=== PATIENT | male | born 1955 | race Caucasian/White ===

== ENCOUNTER 2017-02-26 07:29 | Observation (INO) | payer MEDICARE, OTHER ==
[~2017-02-26] VITALS: Ht 167.6 cm; Wt 92.0 kg
[~2017-02-26 07:29] MED LIST: ALPR0.5T PO; ASPI-727 PO; ATOR40TA21 PO; BEN50 PO; ZOLP10TA PO
[2017-02-26] MEDS ORDERED: ASPIRIN 325 MG TAB PO STA (07:43)
[2017-02-26] MEDS: NITROGLYCERIN (SL) 0.4 MG TAB SL PRN ×2 (07:55→08:24)
--- NOTE | 2017-02-26 08:06 | RADRPT ---
PROCEDURE: XR Chest. CLINICAL INDICATION: chest pain TECHNIQUE: Single frontal view of the chest was obtained COMPARISON: 01/19/2013 FINDINGS: The heart and mediastinum are within normal limits. The lungs are clear. There is no pleural effusion or pneumothorax. RPTAT: AA IMPRESSION: No acute disease. .Nils Bruno MD, MD Date Time Electronically viewed and signed by .Nils Bruno MD, on 02/26/2017 08:06 .S/
[2017-02-26 08:08] LABS: ADD SCAN DIFF NO
[2017-02-26 08:16] LABS: BASOPHILS % 0.7 % (0.0-2.0); EOSINOPHILS # 0.1 10^3/ul (0.0-0.5); EOSINOPHILS % 1.6 % (0.0-7.0); HEMATOCRIT 43.5 % (42.0-52.0); HEMOGLOBIN 14.4 g/dl (14.0-18.0); LYMPHOCYTES # 2.7 10^3/ul (0.8-2.9); LYMPHOCYTES % 44.5 % (15.0-51.0); MEAN CORPUSCULAR HEMOGLOBIN 31.2 pg (29.0-33.0); MEAN CORPUSCULAR HGB CONC 33.1 g/dl (32.0-37.0); MEAN CORPUSCULAR VOLUME 94.4 fl (82.0-101.0); MEAN PLATELET VOLUME 9.9 fl (7.4-10.4); MONOCYTE # 0.5 10^3/ul (0.3-0.9); MONOCYTES % 8.8 % (0.0-11.0); NEUTROPHIL # 2.7 10^3/ul (1.6-7.5); NEUTROPHILS % 43.4 % (39.0-77.0); PLATELET COUNT 161 10^3/UL (140-415); RED BLOOD COUNT 4.61 10^6/ul (4.70-6.10); WHITE BLOOD COUNT 6.1 10^3/ul (4.8-10.8)
[2017-02-26 08:19] LABS: INR 0.9; PARTIAL THROMBOPLASTIN TIME 24.4 Sec (25.0-35.0); PROTIME 12.1 Sec (12.2-14.2); PT RATIO 0.9
[2017-02-26 08:20] LABS: CHLORIDE 104 mmol/L (97-110); SODIUM 141 mmol/L (135-144)
[2017-02-26 08:21] LABS: POTASSIUM 4.1 mmol/L (3.5-5.1)
[2017-02-26 08:23] LABS: CREATININE 0.82 mg/dl (0.61-1.24)
[2017-02-26 08:24] LABS: ANION GAP 15 (8-16); BLOOD UREA NITROGEN 22 mg/dl (7-20); CARBON DIOXIDE 26 mmol/L (21-31); GLUCOSE 96 mg/dl (70-220)
[2017-02-26 08:45] LABS: TROPONIN-I < 0.012 ng/ml (0.00-0.12)
[2017-02-26] MEDS ORDERED: ACETAMINOPHEN 325 MG TAB PO PRN ×2 (09:30→10:30)
[2017-02-26] MEDS ORDERED: ONDANSETRON 4 MG INJ IV PRN (09:30)
--- NOTE | 2017-02-26 09:40 | ERA ---
ER Documentation Chief Complaint Date/Time DATE: 02/26/17 TIME: 09:38 Chief Complaint CAME IN VIA INTAKE DUE TO CHEST PAIN HPI This is a 61-year-old male presents to the emergency room for evaluation of chest pain. The patient states that he had chest pain on and off for the past 48 hours. He describes his chest pain as a pressure-like sensation in the center of the chest with no radiation. He denies any aggravating or relieving factors for his pain. He does state that he has had a previous heart attack, and subsequent stent placed. He denies any palpitations or shortness of breath at this time ROS All systems reviewed and are negative except as per history of present illness. Medications Home Meds Reported Medications Alprazolam* (Xanax*) 0.5 Mg Tab, 0.5 MG PO QBEDTIME 01/19/13 Diphenhydramine Hcl* (Benadryl*) 50 Mg Cap, 50 MG PO QBEDTIME 01/19/13 Zolpidem Tartrate* (Ambien*) 10 Mg Tablet, 10 MG PO QBEDTIME 01/19/13 Aspirin (Adult Aspirin) 81 Mg Tab.chew, 81 MG PO DAILY 01/19/13 Atorvastatin (Lipitor) 40 Mg Tablet, 40 MG PO DAILY 01/19/13 Allergies Allergies: Coded Allergies: No Known Allergy (Verified , 04/26/09) PMhx/Soc History of Surgery: Yes (ONE STENT PLACEMENT, ANGIOGRAM X2) Anesthesia Reaction: No Hx Neurological Disorder: No Hx Respiratory Disorders: No Hx Cardiac Disorders: Yes (arterial occlusion corrected by stent) Hx Psychiatric Problems: No Hx Miscellaneous Medical Probl: Yes (INSOMNIA ) Hx Alcohol Use: No Hx Substance Use: No Hx Tobacco Use: No Smoking Status: Never smoker Physical Exam Vitals Vital Signs Date Time Temp Pulse Resp B/P Pulse Ox O2 Delivery O2 Flow Rate FiO2 02/26/17 08:26 64 18 153/94 98 02/26/17 07:33 98.1 71 18 136/82 98 Physical Exam INITIAL VITAL SIGNS: Reviewed by me GENERAL: The patient is well developed and appropriate for usual state of health in no apparent distress HEENT: Pupils equal, round, and reactive to light. EOMI. There is no scleral icterus. NECK: C-spine is soft and supple, there is no meningismus. There is no cervical lymphadenopathy. LUNGS: Clear to auscultation bilaterally. There are no rales, wheezes or rhonchi. HEART: Regular rate and rhythm, no murmurs, clicks, rubs or gallops. ABDOMEN: Soft, non-tender, non-distended. There are bowel sounds in all four quadrants. No rebound or guarding. EXTREMITIES: There is no peripheral cyanosis or edema. No focal swelling or erythema. NEUROLOGICAL: The patient moves all four extremities with 5/5 strength. Cranial nerves II - XII are intact. Normal gait. Alert and oriented SKIN: There is no apparent rash or petechiae. HEME/LYMPHATIC: There is no evidence of excessive bruising or lymphedema. PSYCHIATRIC: The patient does not appear anxious or depressed. Result Diagram: 02/26/17 0750 02/26/17 0750 Results 24 hrs Laboratory Tests Test 02/26/17 07:50 White Blood Count 6.110^3/ul Red Blood Count 4.6110^6/ul Hemoglobin 14.4g/dl Hematocrit 43.5% Mean Corpuscular Volume 94.4fl Mean Corpuscular Hemoglobin 31.2pg Mean Corpuscular Hemoglobin Concent 33.1g/dl Red Cell Distribution Width 13.0% Platelet Count 00805^3/UL Mean Platelet Volume 9.9fl Neutrophils % 43.4% Lymphocytes % 44.5% Monocytes % 8.8% Eosinophils % 1.6% Basophils % 0.7% Nucleated Red Blood Cells % 0.0/100WBC Neutrophils # 2.710^3/ul Lymphocytes # 2.710^3/ul Monocytes # 0.510^3/ul Eosinophils # 0.110^3/ul Basophils # 0.010^3/ul Nucleated Red Blood Cells # 0.010^3/ul Prothrombin Time 12.1Sec Prothrombin Time Ratio 0.9 INR International Normalized Ratio 0.90 Activated Partial Thromboplast Time 24.4Sec Sodium Level 141mmol/L Potassium Level 4.1mmol/L Chloride Level 104mmol/L Carbon Dioxide Level 26mmol/L Anion Gap 15 Blood Urea Nitrogen 22mg/dl Creatinine 0.82mg/dl Glucose Level 96mg/dl Calcium Level 9.0mg/dl Troponin I < 0.012ng/ml Current Medications Medications (Trade) Dose Ordered Sig/W[place]ley Route PRN Reason Start Time Stop Time Status Last Admin Dose Admin Aspirin (Aspirin) 325 mg ONCE STAT PO 02/26/17 07:43 02/26/17 07:44 DC 02/26/17 07:55 Nitroglycerin (Nitroglycerin (Sl Tab) 0.4 Mg) 1 tab Q5M UP TO 3 DOSES PRN SL CHEST PAIN 02/26/17 08:00 02/26/17 08:24 Ondansetron HCl (Zofran Inj) 4 mg ER BRIDGE PRN IV NAUSEA AND/OR VOMITING 02/26/17 09:30 02/27/17 09:29 Acetaminophen (Tylenol Tab) 650 mg ER BRIDGE PRN PO MILD PAIN/FEVER 02/26/17 09:30 02/27/17 09:29 Procedures/MDM EKG: #1 Rate/Rhythm: [Normal Sinus Rhythm] QRS, ST, T-waves: [No changes consistent w/ acute ischemia] Impression: [No evidence of ischemia or arrhythmia] EKG: #2 Rate/Rhythm: [Normal Sinus Rhythm] QRS, ST, T-waves: [No changes consistent w/ acute ischemia] Impression: [No evidence of ischemia or arrhythmia] Chest X-ray 1V Interpreted by me: Soft Tissue: No acute abnormalities Bones: No acute abnormalities Mediastinum/Cardiac Silhouette/Lungs: [No acute abnormalities] This 61-year-old male presents to the ER for evaluation of chest pain. When I evaluated this patient he did not appear to be in any distress. He does state that his chest pain is intermittent and substernal, pressure-like in nature. Patient had 2 EKGs are nonischemic. First troponin which was negative, and chest x-ray which is clear. However given this patient's age, and the psychosis patient will be placed in for admission at this time as it is not had a stress test in over 4 years. The patient is hemodynamically stable at this time, no signs of hypoxia. And will be admitted under the care of her panel physician, Dr. Jolly Departure Diagnosis: Primary Impression: Chest pain Condition: Stable JUNIORKAYYanetGEOVANNARODO JAIMES Feb 26, 2017 09:40
[2017-02-26] MEDS ORDERED: OMEP40CA6 PO (09:48)
[2017-02-26] MEDS ORDERED: ALPR0.5T6 PO (09:49)
[2017-02-26] MEDS ORDERED: CHOL100062 PO (09:50)
[2017-02-26] MEDS ORDERED: ZOLP5TAB7 PO (09:50)
[2017-02-26] MEDS ORDERED: AMLO5TAB4 PO (09:50)
[2017-02-26] MEDS ORDERED: DULO60CA6 PO (09:51)
[2017-02-26] MEDS ORDERED: ZOLPIDEM 5 MG TAB PO PRN (10:30)
[2017-02-26] MEDS ORDERED: NITROGLYCERIN (SL) 0.4 MG TAB SL PRN (10:30)
[2017-02-26] MEDS ORDERED: NACL 0.9% 3 ML SYG IV SCH (10:30)
[2017-02-26] MEDS ORDERED: ALPRAZOLAM 0.5 MG TAB PO PRN (10:30)
[2017-02-26] MEDS ORDERED: DOCUSATE SODIUM 100 MG CAP PO PRN (10:30)
[2017-02-26] MEDS ORDERED: ONDANSETRON 4 MG TAB PO PRN (10:30)
[2017-02-26 14:53] LABS: CREATINE KINASE 52 IU/L (23-200)
[2017-02-26 15:07] LABS: CK-MB 0.89 ng/ml (0.0-2.4); TROPONIN-I < 0.012 ng/ml (0.00-0.12)
[2017-02-26] MEDS: DEXTROSE 5%-0.45% NACL 1,000 ML IV SCH (17:34)
--- NOTE | 2017-02-26 17:43 | HP ---
DATE OF ADMISSION: 02/26/2017 FLIGHT ENGINEER: Dr. Mckeon, Cardiology. CHIEF COMPLAINT: Shortness of breath and chest discomfort. HISTORY OF PRESENT ILLNESS: This is a 61-year-old gentleman with past medical history of coronary a rtery disease status post PCI right coronary artery in 2008 and had repeat cardiac catheterization o n 01/21/2013 with finding of widely patent right coronary stent with minimal coronary artery disease with noncardiac chest pain finding and has been followed by Dr. 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 ____does not practice and has retired. Patient presents to [facility] emergency room secondary to having 3 days of shortness of breath with chest dis comfort. Chest discomfort is described as chest pressure and left shoulder discomfort. There is no evidence of diaphoresis, no change of the symptoms with activity. There is no worsening of the odilon st pain exacerbated with ambulation. Patient stated that he has been compliant with his medications and upon arrival to the ER, an EKG was obtained which demonstrated normal sinus rhythm, no changes consistent with acute ischemia, no evidence of ischemia or arrhythmia. He was treated with aspirin, nitroglycerin and Tylenol in the course of emergency room. Cardiology was consulted. At this time , patient is lying in bed comfortably without any distress. He is awake, alert, and oriented. PAST MEDICAL AND SURGICAL HISTORY: 1. Anxiety. 2. Hypertension. 3. Dyslipidemia. 4. Coronary artery disease status post PCI. 5. Major depression. 6. GERD. 7. Insomnia. ALLERGIES: NO KNOWN DRUG ALLERGIES. FAMILY HISTORY: Positive for coronary artery disease, hypertension. SOCIAL HISTORY: He used to smoke, although he quit about 15 years ago. Occasional alcohol use, no illicit drugs. REVIEW OF SYSTEMS: As above per HPI, otherwise 12 review of systems was found to be negative. PHYSICAL EXAMINATION: VITAL SIGNS: Temperature 98.0, pulse 58, respiration 18, blood pressure 140/95, oxygen 97% in room air. GENERAL APPEARANCE: The patient is lying in bed comfortably without distress. He is awake, alert, oriented. He is able to answer my questions properly. EYES AND ENT: Conjunctivae and lids are normal. Pupils are normal. Extraocular normal. Hearing g rossly normal. Lips are normal. Oral mucosa is moist. NECK: Supple. Trachea is midline. No lymphadenopathy. RESPIRATORY: Effort is normal. Clear to auscultate bilaterally. CARDIOVASCULAR: Normal S1, S2. Regular rhythm and rate. No murmur, no bruits, no edema. Peripher al pulses, radial pulses palpable. Cap refill is normal. CHEST: Normal expansion of thorax during inspiration. GASTROINTESTINAL: Abdomen is soft, nontender, not distended. Bowel sounds present. No guarding, n o rebound. GENITOURINARY: Deferred. MUSCULOSKELETAL: Upper and lower extremities within normal limits. Full range of motion, strength 5/5 in both upper and lower extremities. NEUROLOGIC: Cranial nerves II through XII are grossly intact. PSYCHIATRIC: Normal judgment and insight. Alert and oriented x3. Mood and affect is normal. LABORATORY WORK AND IMAGING: WBC ____, hemoglobin ____, hematocrit 43.5, platelets 161. Sodium 141 , potassium 4.1, chloride 104, bicarbonate 26, BUN 22, creatinine 0.82, glucose 96, calcium 9.0, tro ponin negative x2. EKG as above per HPI. No evidence of ischemia. ASSESSMENT AND PLAN: 1. Angina with history of percutaneous coronary intervention and coronary artery disease. The shantelel ent has been started on aspirin. Continue statin. Continue blood pressure medication. Follow up l ipid panel, a 2D echocardiogram. Cardiology has been consulted. We will follow up their recommenda tion. 2. History of dyslipidemia. Continue statin. Follow lipid panel in a.m. 3. Essential hypertension, mildly controlled. Continue home medication. Continue to monitor. 4. Major depression. Continue Cymbalta. 5. Gastroesophageal reflux disease. Continue proton pump inhibitor. 6. Insomnia. Continue Ambien p.r.n. 7. Deep venous thrombosis prophylaxis, on Lovenox. 8. We will continue to monitor patient closely. Further recommendations, management and treatment as per clinical course. Dictated By: JAVIER SAMPSON MD PN/NTS Conf#: [id number] DID#: [id number] CC: TRACY MCKEON MD;*EndCC*
[2017-02-26 19:36] LABS: CREATINE KINASE 68 IU/L (23-200)
[2017-02-26 19:51] LABS: CK-MB 1.18 ng/ml (0.0-2.4); TROPONIN-I < 0.012 ng/ml (0.00-0.12)
[2017-02-26] MEDS: LORAZEPAM 0.5 MG TAB PO PRN (20:18)
[2017-02-26 21:07] VITALS: TEMP 97.7
[2017-02-26 21:26] VITALS: PULSE 63
--- NOTE | 2017-02-26 23:45 | RADRPT ---
Echocardiogram Report Patient Name: ANNETTE GARCÍA Gender: Male Date: 1955 Study Date: 26-Feb-2017 Operator Bearer Systems: LEAH AYON Location: [facility] Ref. Physician: JAVIER SAMPSON Quality: Adequate Procedures: Transthoracic echocardiogram with complete 2D, M-Mode, and doppler examination. Indications: Chest Pain. 2D/M Mode Doppler Measurement Value Normal Ranges Measurement Value Normal Ranges LVIDd 2D 4.4 3.5 - 5.6 cm CARROLL Vmax 2.9 cm2 LVIDs 2D 2.9 2.1 - 4.1 cm AV Peak Mason 1.0 m/sec FS 2D 34.2 % AV Peak PG 4.0 mmHg LVPWd 2D 1.0 0.6 - 1.1 cm LVOT Peak Mason 0.8 m/sec IVSd 2D 1.0 0.6 - 1.1 cm LVOT Peak PG 3.0 mmHg IVS/LVPW 2D 1.0 MV E Peak Mason 0.7 m/sec AoR Diam 2D 2.7 2.0 - 3.7 cm MV A Peak Mason 0.6 m/sec LA/Ao 2D 1 0 - 1 MV E/A 1.1 EDV 2D 84.0 cm3 MV Decel Time 187 msec ESV 2D 23.9 cm3 MV E/A 1.1 LA Dimen 2D 3.3 2.3 - 4.0 cm TR Peak Mason 2.5 m/sec LVOT Diam 2.2 cm TR Peak PG 24.0 mmHg LVOT Area 3.8 cm2 RVSP 27.0 mmHg Findings Left Ventricle: Lower limits of normal systolic function. Normal left ventricular wall thickness. Ejection fraction is visually estimated at 5055 %. Tissue Doppler/Mitral Doppler indices are consistent with impaired relaxation (Stage I diastolic dysfunction). Right Ventricle: Normal right ventricular size. Normal right ventricular systolic function. Left Atrium: The left atrium is normal in size. Right Atrium: The right atrium is normal in size. Mitral Valve: Normal appearance of the mitral valve. Normal appearance and function of the mitral valve with trace physiologic regurgitation. Aortic Valve: Normal appearance of the aortic valve. No significant aortic stenosis or insufficiency. Tricuspid Valve: Normal appearance and function of the tricuspid valve with trace physiologic regurgitation. Normal right ventricular systolic pressure. Estimated peak PA systolic pressure 27 mmHg. Pulmonic Valve: Pulmonic valve not well visualized. There is trace to mild pulmonic regurgitation. Pericardium: Normal pericardium with no significant pericardial effusion. Aorta: Normal aortic root. IVC: Normal size and normal respiratory collapse consistent with normal right atrial pressure. Conclusions 1.Lower limits of normal systolic function. Normal left ventricular wall thickness. Ejection fraction is visually estimated at 50-55 %. Tissue Doppler/Mitral Doppler indices are consistent with impaired relaxation (Stage I diastolic dysfunction). 2.Normal appearance of the mitral valve. Normal appearance and function of the mitral valve with trace physiologic regurgitation. 3.Normal appearance and function of the tricuspid valve with trace physiologic regurgitation. Normal right ventricular systolic pressure. Estimated peak PA systolic pressure 27 mmHg. 4.Pulmonic valve not well visualized. There is trace to mild pulmonic regurgitation. Electronically Signed By: Nickolas Larkin 26-Feb-2017 23:45:01 -0700 Patient Name: ANNETTE GARCÍA Study Date: 26-Feb-2017 [id number]
[2017-02-27] VITALS (23 sets, daily range): BP systolic 104–140; BP diastolic 61–90; PULSE 52–72; RESP 16–20; Ht 167.6 cm; Wt 92.0 kg
[2017-02-27] MEDS: LORAZEPAM 0.5 MG TAB PO PRN (01:15)
[2017-02-27] MEDS: morphine 2 MG INJ IV PRN ×2 (06:12→06:19)
[2017-02-27] MEDS: PANTOPRAZOLE (EC) 40 MG TAB PO SCH (06:19)
[2017-02-27] MEDS: DEXTROSE 5%-0.45% NACL 1,000 ML IV SCH (06:26)
[2017-02-27 07:55] LABS: ADD SCAN DIFF NO
[2017-02-27 07:59] LABS: BASOPHILS % 0.4 % (0.0-2.0); EOSINOPHILS # 0.1 10^3/ul (0.0-0.5); EOSINOPHILS % 2.1 % (0.0-7.0); HEMATOCRIT 39.8 % (42.0-52.0); HEMOGLOBIN 13.4 g/dl (14.0-18.0); LYMPHOCYTES % 40.7 % (15.0-51.0); MEAN CORPUSCULAR HEMOGLOBIN 32.1 pg (29.0-33.0); MEAN CORPUSCULAR HGB CONC 33.7 g/dl (32.0-37.0); MEAN CORPUSCULAR VOLUME 95.2 fl (82.0-101.0); MEAN PLATELET VOLUME 9.7 fl (7.4-10.4); MONOCYTE # 0.4 10^3/ul (0.3-0.9); MONOCYTES % 8.8 % (0.0-11.0); NEUTROPHIL # 2.3 10^3/ul (1.6-7.5); NEUTROPHILS % 47.4 % (39.0-77.0); PLATELET COUNT 147 10^3/UL (140-415); RED BLOOD COUNT 4.18 10^6/ul (4.70-6.10); RED CELL DISTRIBUTION WIDTH 12.7 % (11.5-14.5); WHITE BLOOD COUNT 4.9 10^3/ul (4.8-10.8)
[2017-02-27 08:29] LABS: CREATINE KINASE 35 IU/L (23-200)
[2017-02-27 08:46] LABS: CK-MB 0.59 ng/ml (0.0-2.4); TROPONIN-I < 0.012 ng/ml (0.00-0.12)
[2017-02-27] MEDS: ASPIRIN 81 MG TAB PO SCH (08:56)
--- NOTE | 2017-02-27 08:56 | CONS ---
Date/Time of Note Date/Time of Note DATE: 02/27/17 TIME: 08:46 Assessment/Plan Assessment/Plan Chief Complaint/Hosp Course Impression: Chest pain- symptoms c/w unstable angina, has recent stress within 6 mo which was negative, but sub maximal. has r/o for acs with no trop/ekg changes. no wma on echo. however given recurrent symptoms and PCI hx would recommend further evaluation with C given high risk status Hypertension - controlled Dyspnea- could be angina related, LVEF normal no e/o of other chf on exam. cxr clear. Recommendations: - cont asa, statin - cont bp control - off bb given denise 50s - prn sln/pain medication for recurrent pain - plan for LHC w possible PCI this afternoon around 330 pm. keep npo and hold heparin products. pt aware of risks/benefits of procedure, agrees to proceed Problems: Consultation Date/Type/Reason Admit Date/Time Feb 26, 2017 at 09:24 Date of Consultation: Feb 27, 2017 Type of Consultation: Cardiology Reason for Consultation Chest Pain Referring Provider: JAVIER SAMPSON MD Hx of Present Illness 61 y.o. with h/o of HTN, leukemia, and CAD s/p PCI of the right coronary artery in 2008. Pt presented to [facility] with progressive sob/chest pain. Pt states chronic sob with exertion, has previous stress 08/[address] Patel with no ischemia, but submaximal stress. Pt states over the last few days has progressive dyspnea even walking a few feet, requires him to rest. also with intermittent daily chest pain L sided to L shoulder with diaphoresis, dizziness no n/v/sob. Pain is severe, requires him to rest, pressure/tightness type pain. occurs at rest and resolved by itself or with pain medication after 10 mins. No positional component. pt states this pain is similar to previous pain prior to pci. Did have recurrent pain this AM denies any recent illness fevers, chills, cough. takes medications, bp controlled. EKG shows no serial changes, NSR, poor r wave progression Echo shows normal LVEF 55% without rwma Serial trop neg x 3, Constitutional: no complaints Eyes: no complaints ENT: no complaints Respiratory: shortness of breath, No cough, No pleuritic pain, No wheezing Cardiovascular: chest pain Gastrointestinal: no complaints Genitourinary: no complaints Musculoskeletal: no complaints Skin: no complaints Neurologic: no complaints Psychological: nl mood/affect, no complaints Immunologic: no complaints Past Medical History CAD (coronary artery disease), [place] coronary artery (414.01) (I25.10) PCI to RCA with JONO 2008 with angio 2012 without lesions Essential hypertension (401.9) (I10) 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 Past Surgical History PCI as above Family History Significant Family History: hypertension Social History Alcohol Use: none Smoking Status: Former smoker Drug Use: none Exam/Review of Systems Vital Signs Vitals Vital Signs Date Time Temp Pulse Resp B/P Pulse Ox O2 Delivery O2 Flow Rate FiO2 02/27/17 08:25 56 02/27/17 07:52 98.0 19 104/65 98 02/27/17 00:00 Room Air Intake and Output 02/26/17 02/26/17 02/27/17 15:00 23:00 07:00 Intake Total 525 ml Output Total 540 ml Balance -15 ml Exam Constitutional: alert, oriented, other (overweight) Psych: nl mood/affect, no complaints Head: atraumatic, normocephalic ENMT: mucosa pink and moist, nl external ears & nose, nl lips & teeth Neck: non-tender, supple, No jvd Respiratory: clear to auscultation, normal air movement Cardiovascular: nl pulses, regular rate and rhythm, No S3, No S4, No edema, No irregular rhythm, No jugular venous distention ( JVD), No systolic murmur Gastrointestinal: non-tender, soft Musculoskeletal: nl extremities to inspection Extremities: normal pulses, other (2+ radial, feomral) Neurological: [employer] RECRUITER II-XII intact, nl mental status, nl speech, nl strength Results Result Diagram: 02/27/17 0719 02/26/17 0750 Results 24 hrs Laboratory Tests Test 02/26/17 14:20 02/26/17 19:10 02/27/17 07:19 Creatine Kinase 52 68 35 Creatine Kinase Index 1.7 1.7 Pending Creatinine Kinase MB (Mass) 0.89 1.18 Pending Troponin I < 0.012 < 0.012 Pending White Blood Count 4.9 Red Blood Count 4.18 L Hemoglobin 13.4 L Hematocrit 39.8 L Mean Corpuscular Volume 95.2 Mean Corpuscular Hemoglobin 32.1 Mean Corpuscular Hemoglobin Concent 33.7 Red Cell Distribution Width 12.7 Platelet Count 147 Mean Platelet Volume 9.7 Neutrophils % 47.4 Lymphocytes % 40.7 Monocytes % 8.8 Eosinophils % 2.1 Basophils % 0.4 Nucleated Red Blood Cells % 0.0 Neutrophils # 2.3 Lymphocytes # 2.0 Monocytes # 0.4 Eosinophils # 0.1 Basophils # 0.0 Nucleated Red Blood Cells # 0.0 Medications Medications Current Medications Alprazolam (Xanax) 0.5 mg QHS PRN PO ANXIETY; Start 02/26/17 at 10:30 Amlodipine Besylate (Norvasc) 5 mg DAILY PO ; Start 02/27/17 at 09:00 Atorvastatin Calcium (Lipitor) 40 mg DAILY PO ; Start 02/27/17 at 09:00 Cholecalciferol (Vitamin D) 1,000 unit DAILY PO ; Start 02/27/17 at 09:00 Duloxetine HCl (Cymbalta) 60 mg DAILY PO ; Start 02/27/17 at 09:00 Zolpidem Tartrate (Ambien) 5 mg QHS PRN PO INSOMNIA Last administered on 22:26; Admin Dose 5 MG; Start 02/26/17 at 10:30 Lorazepam (Ativan) 0.5 mg Q8H PRN PO ANXIETY Last administered on 02/27/17 01: 15; Admin Dose 0.5 MG; Start 02/26/17 at 10:30 Ondansetron HCl (Zofran Tab) 4 mg Q6H PRN PO NAUSEA AND/OR VOMITING; Start at 10:30 Nitroglycerin (Nitroglycerin (Sl Tab) 0.4 Mg) 1 tab Q5M PRN SL CHEST PAIN Last administered on 02/27/17 06:24; Admin Dose 1 TAB; Start 02/26/17 at 10:30 Acetaminophen (Tylenol Tab) 650 mg Q6H PRN PO PAIN LEVEL 1-3 OR FEVER Last administered on 02/26/17 15:33; Admin Dose 650 MG; Start 02/26/17 at 10:30 Morphine Sulfate (morphine) 1 mg Q4H PRN IV PAIN LEVEL 7-10 Last administered on 02/27/17 06:19; Admin Dose 1 MG; Start 02/26/17 at 10:30 Docusate Sodium (Colace) 100 mg Q12H PRN PO CONSTIPATION; Start 02/26/17 at 10: 30 Enoxaparin Sodium (Lovenox) 40 mg DAILY SC ; Start 02/27/17 at 09:00 Aspirin 81 mg 81 mg DAILY PO ; Start 02/27/17 at 09:00 Dextrose/Sodium Chloride (D5-1/2ns) 1,000 ml @ 75 mls/hr [id number] IV Last administered on 02/27/17t 06:26; Admin Dose 75 MLS/HR; Start 02/26/17 at 17:30 Procedures Procedures cxr images reviewed- no acute abnl TRACY MCKEON Feb 27, 2017 08:56
[2017-02-27] MEDS: ATORVASTATIN 40 MG TAB PO SCH (08:57)
[2017-02-27] MEDS: AMLODIPINE 5 MG TAB PO SCH (08:57)
[2017-02-27] MEDS: CHOLECALCIFEROL 1,000 UNIT TAB PO SCH (08:58)
[2017-02-27] MEDS: DULOXETINE 30 MG CAP DR PO SCH (08:58)
[2017-02-27] MEDS ORDERED: ENOXAPARIN 40 MG/0.4 ML SYG SC SCH (09:00)
[2017-02-27 09:48] LABS: CHOL/HDL RATIO 3.5 RATIO; CREATININE 0.85 mg/dl (0.61-1.24); POTASSIUM 4.8 mmol/L (3.5-5.1)
[2017-02-27 10:20] LABS: THYROID STIMULATING HORMONE 2.07 MIU/L (0.465-4.680)
--- NOTE | 2017-02-27 14:28 | PN ---
Date/Time of Note Date/Time of Note DATE: 02/27/17 TIME: 14:25 Assessment/Plan VTE Prophylaxis VTE Prophylaxis Intervention: LMWH Lines/Catheters IV C[facility]ter Type (from [facility]): Peripheral IV Urinary Cath still in place: No Assessment/Plan Chief Complaint/Hosp Course ASSESSMENT AND PLAN: 1. Angina with history of percutaneous coronary intervention and coronary artery disease. Continue aspirin and statin. Continue to treat and monitor blood pressure. lipid panel is well controlled. Cardiology has been consulted. Plan for left heart catheterization today 2. History of dyslipidemia. Continue statin. 3. Essential hypertension, better controlled. Continue home medication. Continue to monitor. 4. Major depression. Continue Cymbalta. 5. Gastroesophageal reflux disease. Continue proton pump inhibitor. 6. Insomnia. Continue Ambien p.r.n. 7. Deep venous thrombosis prophylaxis, on Lovenox. We will continue to monitor patient closely. Further recommendations, management and treatment as per clinical course. Problems: Subjective 24 Hr Interval Summary Free Text/Dictation Patient continues to complain of having chest discomfort No nausea vomiting diarrhea Denies having abdominal pain N.p.o. Exam/Review of Systems Vital Signs Vitals Vital Signs Date Time Temp Pulse Resp B/P Pulse Ox O2 Delivery O2 Flow Rate FiO2 02/27/17 12:13 61 02/27/17 11:58 98.1 19 116/61 98 02/27/17 00:00 Room Air Intake and Output 02/26/17 02/26/17 02/27/17 15:00 23:00 07:00 Intake Total 525 ml Output Total 540 ml Balance -15 ml Exam General: The patient is well-developed, Not in acute distress. HEENT: Atraumatic, normocephalic. The pupils are equal and round . Neck: Supple with full range of motion. Chest: Normal expansion of the thorax during inspiration Lungs: Clear to auscultation bilaterally Heart: Normal S1-S2, Regular rhythm and rate. Abdomen: Soft , nontender, nondistended , bowel sounds are present. Extremities: Normal to inspection, no edema no cyanosis Neurologic: Normal mental status,The patient is awake, alert and oriented . Results Result Diagram: 02/27/17 0719 02/27/17 0719 Results 24 hrs Laboratory Tests Test 02/26/17 19:10 02/27/17 07:19 Creatine Kinase 68 35 Creatine Kinase Index 1.7 1.7 Creatinine Kinase MB (Mass) 1.18 0.59 Troponin I < 0.012 < 0.012 White Blood Count 4.9 Red Blood Count 4.18 L Hemoglobin 13.4 L Hematocrit 39.8 L Mean Corpuscular Volume 95.2 Mean Corpuscular Hemoglobin 32.1 Mean Corpuscular Hemoglobin Concent 33.7 Red Cell Distribution Width 12.7 Platelet Count 147 Mean Platelet Volume 9.7 Neutrophils % 47.4 Lymphocytes % 40.7 Monocytes % 8.8 Eosinophils % 2.1 Basophils % 0.4 Nucleated Red Blood Cells % 0.0 Neutrophils # 2.3 Lymphocytes # 2.0 Monocytes # 0.4 Eosinophils # 0.1 Basophils # 0.0 Nucleated Red Blood Cells # 0.0 Sodium Level 135 Potassium Level 4.8 Chloride Level 104 Carbon Dioxide Level 27 Anion Gap 9 # Blood Urea Nitrogen 19 Creatinine 0.85 Glucose Level 123 Calcium Level 9.0 Magnesium Level 2.0 Triglycerides Level 139 Cholesterol Level 176 LDL Cholesterol, Calculated 99 HDL Cholesterol 49 Cholesterol/HDL Ratio 3.5 Thyroid Stimulating Hormone (TSH) 2.070 Medications Medications Current Medications Alprazolam (Xanax) 0.5 mg QHS PRN PO ANXIETY; Start 02/26/17 at 10:30 Amlodipine Besylate (Norvasc) 5 mg DAILY PO Last administered on 02/27/17 08: 57; Admin Dose 5 MG; Start 02/27/17 at 09:00 Atorvastatin Calcium (Lipitor) 40 mg DAILY PO Last administered on 02/27/17 08 :57; Admin Dose 40 MG; Start 02/27/17 at 09:00 Cholecalciferol (Vitamin D) 1,000 unit DAILY PO Last administered on 02/27/17 08:58; Admin Dose 1,000 UNIT; Start 02/27/17 at 09:00 Duloxetine HCl (Cymbalta) 60 mg DAILY PO Last administered on 02/27/17 08:58; Admin Dose 60 MG; Start 02/27/17 at 09:00 Zolpidem Tartrate (Ambien) 5 mg QHS PRN PO INSOMNIA Last administered on 22:26; Admin Dose 5 MG; Start 02/26/17 at 10:30 Lorazepam (Ativan) 0.5 mg Q8H PRN PO ANXIETY Last administered on 02/27/17 01: 15; Admin Dose 0.5 MG; Start 02/26/17 at 10:30 Ondansetron HCl (Zofran Tab) 4 mg Q6H PRN PO NAUSEA AND/OR VOMITING; Start at 10:30 Nitroglycerin (Nitroglycerin (Sl Tab) 0.4 Mg) 1 tab Q5M PRN SL CHEST PAIN Last administered on 02/27/17 06:24; Admin Dose 1 TAB; Start 02/26/17 at 10:30 Acetaminophen (Tylenol Tab) 650 mg Q6H PRN PO PAIN LEVEL 1-3 OR FEVER Last administered on 02/26/17 15:33; Admin Dose 650 MG; Start 02/26/17 at 10:30 Morphine Sulfate (morphine) 1 mg Q4H PRN IV PAIN LEVEL 7-10 Last administered on 02/27/17 06:19; Admin Dose 1 MG; Start 02/26/17 at 10:30 Docusate Sodium (Colace) 100 mg Q12H PRN PO CONSTIPATION; Start 02/26/17 at 10: 30 Aspirin 81 mg 81 mg DAILY PO ; Start 02/27/17 at 09:00 Dextrose/Sodium Chloride (D5-1/2ns) 1,000 ml @ 75 mls/hr [id number] IV Last administered on 02/27/17 06:26; Admin Dose 75 MLS/HR; Start 02/26/17 at 17:30 JAVIER SAMPSON MD Feb 27, 2017 14:28
[2017-02-27] MEDS ORDERED: MIDAZOLAM 1 MG/ML 2 ML INJ ONE (17:17)
[2017-02-27] MEDS ORDERED: IODIXANOL LOCM 100 ML BTL ONE (17:17)
[2017-02-27] MEDS ORDERED: FENTAnyl 50 MCG/ML VIAL ONE (17:17)
[2017-02-27] MEDS ORDERED: LIDOCAINE 1% (MDV) 20 ML INJ ONE (17:17)
[2017-02-27] MEDS ORDERED: HEPARIN 1000 UNITS/NS (A-LINE) 1,000 ML ONE (17:17)
--- NOTE | 2017-02-27 17:24 | QN ---
Documentation Comment Brief Pre-Cardiac Cath Note 61 yom w/ CAD (PCI of RCA), htn, hld, GERD and depression with worsen GARCIA and left-sided chest pain. Concern for unstable angina. Plan for coronary angiogram with possible percutaneous coronary intervention. Risks, benefits, alternatives explained to patient in detail. Risks included but are not limited to NH, stroke, vascular injury, contrast nephropathy, bleeding, emergency cardiac surgery, allergic reaction and . Pt understands and agrees to proceed. Denies any issues w/ bleeding and states he can tolerate DAPT for 1 year. TRENT WORRELL Feb 27, 2017 17:24
[2017-02-27] MEDS ORDERED: SOD CHLORIDE 0.9% 1,000 ML IV SCH (18:17)
[2017-02-27] MEDS ORDERED: AL HYDROX/MG HYDROX/SIMETH 30 ML CUP PO PRN (18:30)
[2017-02-27] MEDS ORDERED: ACETAMINOPHEN 325 MG TAB PO PRN (18:30)
--- NOTE | 2017-02-27 18:32 | QN ---
Documentation Comment Brief Cardiac Cath Note - see official report for details Coronary angiogram: LM - normal LAD - mild proximal disease, early mid-40%, D1 - large w/ mild disease, D2 - large w/ mild disease, mild disease in distal LAD LCfx - mild proximal disease, large OM1 w/ mild luminal irregularities RCA - dominant, mid-RCA stent is widely patent, eccentric 40-50% lesion after stent, mild distal disease, large LVEB w/ mild disease, medium PDA w/ mild disease Right common femoral - mild disease Impression: 1. No severe CAD or "culprit" lesion which would explain his symptoms. Mid-RCA stent is widely patent. Plan - continue aspirin and maximize medical therapy - pursue other causes of dyspnea/ cp (ie. consider CTA - will defer to medicine team) - bedrest 3 hrs - used angioseal Complications - none EBL ~ 10 ml Specimens removed - none TRENT WORRELL Feb 27, 2017 18:32
[2017-02-28] VITALS (8 sets, daily range): BP systolic 106–130; BP diastolic 68–79; PULSE 58–73; RESP 18–20
--- NOTE | 2017-02-28 00:33 | OPR ---
DATE OF OPERATION: VET ASSISTANT: Orlin Worrell MD PROCEDURES PERFORMED: 1. Coronary angiogram. 2. Left heart catheterization. 3. Right common femoral angiogram. 4. Angio-Seal in the right common femoral arteriotomy site. PROCEDURE INDICATION: This is a 61-year-old male with history of PCI of the RCA in 2008, hypertensi on, hyperlipidemia and GERD who presents with progressive dyspnea on exertion and chest pain. He wa s seen by Dr. Camarillo and there was concern for unstable angina, recommended cardiac cath to definit ively rule out coronary artery disease because of progressive symptoms and the patient had a recent stress test, so there was a concern that there may have been a false negative. PROCEDURE NARRATIVE: Informed consent obtained and documented, area of the right groin prepped and draped in sterile fashion. Using ultrasound guidance and a modified Seldinger approach, a 5-[place] sheath was placed in the right common femoral artery. A femoral angiogram confirmed placement in th e right common femoral artery. A 5-[place] FL4 was advanced to the aortic root and engaged in the le ft coronary ostium. Left coronary angiography was done in multiple views. Catheter was then exchan ged for a 5-[place] FR4 catheter which was advanced across the aortic valve into the LV. LV pressure was measured. Then, a pullback was done. The catheter was then engaged in the right coronary osti um. Right coronary angiography was done. The FR4 catheter was removed. After review of the angiog hany, there is no lesion that needed intervention. The prior RCA stent was widely patent. A 6-Frenc h Angio-Seal was used to achieve hemostasis. The patient was asymptomatic and hemodynamically stabl e at the end of the procedure. HEMODYNAMICS: Heart rate 68, LV was 145/13, aortic was 145/79, mean of 106. CORONARY ANGIOGRAM: 1. Left main normal. 2. LAD: Mild proximal disease, early mid 40% lesion, followed by mild disease in the mid to distal LAD and distal LAD. D1 is large with mild disease. D2 is large with mild disease. 3. Left circumflex: Mild proximal disease, large OM1 with a medium sized branch that has mild jesse nal irregularities, small to moderate mid circumflex. 4. RCA is dominant. Mid RCA stent is widely patent. There is a 40% to 50% eccentric lesion after the stent. Mild luminal irregularities past that. Large LV extension branch with mild disease. A medium PDA with mild disease. 5. Right common femoral: Mild disease. IMPRESSION: 1. No severe coronary artery disease or culprit lesion which would explain the patient's symptoms. 2. Mid RCA stent is widely patent. 3. There are mild to moderate lesions in the mid LAD and mid RCA which are not hemodynamically sign ificant. PLAN: Continue aspirin. Maximize medical therapy. Pursue other causes of the patient's dyspnea. Bedrest. Follow up with Dr. Patel. COMPLICATIONS: None. ESTIMATED BLOOD LOSS: 10 mL. SPECIMENS REMOVED: None. Dictated By: ORLIN WORRELL MD /NTS Conf#: [id number] DID#: [id number] CC: VIVEK CULLEN MD; JAVIER SAMPSON MD;*EndCC*
[2017-02-28 08:16] LABS: ADD SCAN DIFF NO
[2017-02-28 08:17] LABS: BASOPHILS % 0.7 % (0.0-2.0); EOSINOPHILS # 0.1 10^3/ul (0.0-0.5); EOSINOPHILS % 1.1 % (0.0-7.0); HEMATOCRIT 41.7 % (42.0-52.0); HEMOGLOBIN 14.1 g/dl (14.0-18.0); LYMPHOCYTES # 1.8 10^3/ul (0.8-2.9); LYMPHOCYTES % 33.5 % (15.0-51.0); MEAN CORPUSCULAR HEMOGLOBIN 31.8 pg (29.0-33.0); MEAN CORPUSCULAR HGB CONC 33.8 g/dl (32.0-37.0); MEAN CORPUSCULAR VOLUME 94.1 fl (82.0-101.0); MONOCYTE # 0.5 10^3/ul (0.3-0.9); MONOCYTES % 9.1 % (0.0-11.0); NEUTROPHILS % 55.2 % (39.0-77.0); PLATELET COUNT 152 10^3/UL (140-415); RED BLOOD COUNT 4.43 10^6/ul (4.70-6.10); RED CELL DISTRIBUTION WIDTH 12.6 % (11.5-14.5); WHITE BLOOD COUNT 5.4 10^3/ul (4.8-10.8)
[2017-02-28] MEDS: DULOXETINE 30 MG CAP DR PO SCH (08:30)
[2017-02-28] MEDS: ASPIRIN 81 MG TAB PO SCH (08:30)
[2017-02-28] MEDS: CHOLECALCIFEROL 1,000 UNIT TAB PO SCH (08:31)
[2017-02-28] MEDS: PANTOPRAZOLE (EC) 40 MG TAB PO SCH (08:31)
[2017-02-28] MEDS: AMLODIPINE 5 MG TAB PO SCH (08:31)
[2017-02-28] MEDS: ATORVASTATIN 40 MG TAB PO SCH (08:31)
[2017-02-28 08:41] LABS: POTASSIUM 4.1 mmol/L (3.5-5.1)
[2017-02-28 08:44] LABS: CALCIUM 9.1 mg/dl (8.4-10.2); CREATININE 0.86 mg/dl (0.61-1.24)
--- NOTE | 2017-02-28 13:28 | PDOCDIS ---
Discharge Instructions CONDITION Patient Condition: Stable HOME CARE INSTRUCTIONS: Special Diet: CARDIAC DIET. ACTIVITY: Activity Restrictions: Slowly Increase Activity FOLLOW UP/APPOINTMENTS Appointments Please take your medications and see your doctor in the clinic in 1 week. CLAIRE CHRISTIANSON Feb 28, 2017 13:28
--- NOTE | 2017-02-28 14:53 | DS ---
DATE OF ADMISSION: 02/26/2017 DATE OF DISCHARGE: 02/28/2017 HOSPITAL COURSE: A 61-year-old male originally admitted on 02/26/2017 being discharged home on 02/01. The patient came in with chest pain symptoms and shortness of breath. He was admitted to telemetry floor and seen by cardiology team. An echocardiogram was obtained, showed ejection fracti on of 50% to 55%, normal left ventricular systolic function, normal left ventricular wall thic kness. There was some stage I diastolic dysfunction. The valves appear to be normal. He was admit yecenia and ruled out for acute coronary syndrome. His cholesterol panel was normal. Troponins are neg ative x3. He was seen by cardiology team and underwent cardiac catheterization that showed no sever e coronary artery disease or culprit lesion, which would explain the patient's symptoms. There was a mid RCA stent that widely patent. There were some mild to moderate lesions at the mid LAD and mid RCA, which were not hemodynamically significant. Over the course of the hospital stay, the patient 's chest pain symptoms improved. Vital signs are stable. He was able to ambulate and tolerate a p. o. diet. After speaking with the cardiology team today, he will be discharged home today in improve d condition. DISCHARGE MEDICATIONS: He will be sent with the following medications: 1. Alprazolam 0.5 mg . 2. Norvasc 5 mg daily. 3. Lipitor 40 mg daily. 4. Vitamin D 1000 units daily. 5. Cymbalta 60 mg daily. 6. Omeprazole 40 mg in the morning. 7. Ambien 5 mg at bedtime p.r.n. FOLLOWUP: He will need to followup with the cardiology team and primary care doctor within . FINAL DIAGNOSES: 1. Chest pain, ruled out for acute coronary syndrome with negative left heart catheterization. 2. History of coronary artery disease status post percutaneous coronary intervention to the right c oronary artery in 2008. 3. Essential hypertension. 4. High cholesterol. 5. Major depression. 6. Gastroesophageal reflux disease. 7. Insomnia. 8. Anxiety. Time spent discharging patient 40 minutes. Dictated By: CLAIRE DOE Conf#: [id number] DID#: [id number]
== END 2017-02-28 14:23 | disposition home or self-care (01) ==
LOC: E/R 07:29 → MS4 09:24 → INTOOBSV 09:24
PROVIDERS: ADMIT Family Medicine; ATTEND Family Medicine
DX: I25.10 Atherosclerotic heart disease of native coronary artery without angina pectoris (principal); I10 Essential (primary) hypertension; E78.00 Pure hypercholesterolemia, unspecified; F32.9 Major depressive disorder, single episode, unspecified; K21.9 Gastro-esophageal reflux disease without esophagitis; G47.00 Insomnia, unspecified; F41.8 Other specified anxiety disorders
CPT/HCPCS: 36415; 71010; 80048; 80061; 82550; 82553; 83735; 84443; 84484; 85025; 85610; 85730; 87081; 93005; 93306; 93458; 96374; 96376; 99285; C1760; C1769; C1887; G0378; J1644; J2250; J2270; J3010; J7030; J7042; Q9967

== ENCOUNTER 2018-02-12 21:06 | Inpatient (IN) | END 2018-02-13 15:38 | disposition home or self-care (01) | DRG 916 ==